=== PATIENT | male | born 1940 | race Two or more races ===

== ENCOUNTER 2019-06-08 08:36 | Inpatient (IN) | payer OTHER ==
[~2019-06-08] VITALS: Ht 152.4 cm; Wt 5.0 kg
[~2019-06-08 08:36] MED LIST: ADVAIR HFA 115/12 GM IH; ORPH100T PO; PROVENTIL0.5 ML/2.5 IH; VENTOLIN HFA18 GM IH
[2019-06-08] MEDS ORDERED: ADVAIR HFA 115/12 GM IH (08:58)
== END 2019-06-15 09:15 | disposition home or self-care (01) | DRG 190 ==
LOC: ER → MEDJ 18:30 → SEC-K 18:30 → MEDJ 06-09 03:00
PROVIDERS: ADMIT Internal Medicine
PROC: BB24ZZZ Computerized Tomography (CT Scan) of Bilateral Lungs (ICD-10-PCS; principal; 2019-06-08)
PROC: 4A033R1 Measurement of Arterial Saturation, Peripheral, Percutaneous Approach (ICD-10-PCS; 2019-06-08)
PROC: 3E0F7GC Introduction of Other Therapeutic Substance into Respiratory Tract, Via Natural or Artificial Opening (ICD-10-PCS; 2019-06-08)
DX: J44.1 Chronic obstructive pulmonary disease with (acute) exacerbation (principal); J15.1 Pneumonia due to Pseudomonas; J45.51 Severe persistent asthma with (acute) exacerbation; C79.89 Secondary malignant neoplasm of other specified sites; B96.5 Pseudomonas (aeruginosa) (mallei) (pseudomallei) as the cause of diseases classified elsewhere; C61 Malignant neoplasm of prostate; R97.21 Rising PSA following treatment for malignant neoplasm of prostate; K44.9 Diaphragmatic hernia without obstruction or gangrene; I70.0 Atherosclerosis of aorta; F17.299 Nicotine dependence, other tobacco product, with unspecified nicotine-induced disorders

== ENCOUNTER 2019-10-28 07:36 | Day surgery (SDC) | payer OTHER | END 2019-10-28 13:15 | disposition home or self-care (01) | LOC: AMB-ENDOS 07:36 | DX: K63.89 Other specified diseases of intestine (principal); K57.30 Diverticulosis of large intestine without perforation or abscess without bleeding; K64.1 Second degree hemorrhoids ==

== ENCOUNTER 2021-12-19 07:44 | Outpatient (CLI) | payer OTHER | END 2021-12-19 08:08 | disposition home or self-care (01) | LOC: TOM 07:44 | PROVIDERS: ATTEND Internal Medicine Gastroenterology | DX: K56.50 Intestinal adhesions [bands], unspecified as to partial versus complete obstruction (principal); R97.0 Elevated carcinoembryonic antigen [CEA] ==